=== PATIENT | male | born 1995 | race Two or more races ===

== ENCOUNTER 2020-03-13 14:09 | Inpatient (IN) | payer OTHER ==
--- NOTE | 2020-03-13 14:45 | BHS.RME ---
Substance Use & Tx History - Substance Use History Heroin Substance amount: 4 bags Frequency of use: Daily Substance route: Injection (ex: intravenous or skin popping) Date of Last Use: 03/10/20 (First use age 23 y. OD x 3, last OD years ago. Has Narcan at home) Marijuana/Hashish Substance amount: one joint Frequency of use: Less than 3 times per week Substance route: Smoking Date of Last Use: 03/12/20 (First use age 19 y) - Last Treatment Date of last treatment: First visit to [facility] Physical/Psych/Mental Status - Behavior General Behavior: Increased activity (restlessness, agitation) Eye Contact: Normal - Cooperativeness Cooperativeness: Cooperative - Thinking Thought Processes: Tight Thought content: Future oriented - Physical Health Problems Is patient presently having any pain?: No Does patient presently have any injuries (include location): No Does patient currently have a fever: No COWS - Scale Resting Pulse: 0= [place] 80 or Below Sweatin=Flushed/Facial Moisture Restless Observation: 3= Extraneous Movement Pupil Size: 2= Moderately Dilated Bone or Joint Aches: 2= Severe Diffuse Aches Runny Nose/ Eye Tearin= Runny Nose/Eyes GI Upset > 30mins: 3= Vomiting/Diarrhea Tremor Observation: 0= None Yawning Observation: 0= None Anxiety or Irritability: 2=Irritable/Anxious Goose Flesh Skin: 0=Smooth Skin COWS Score: 16
--- NOTE | 2020-03-13 14:57 | HP ---
COWS - Scale Resting Pulse: 0= [place] 80 or Below Sweatin=Flushed/Facial Moisture Restless Observation: 3= Extraneous Movement Pupil Size: 2= Moderately Dilated Bone or Joint Aches: 2= Severe Diffuse Aches Runny Nose/ Eye Tearin= Runny Nose/Eyes GI Upset > 30mins: 3= Vomiting/Diarrhea Tremor Observation: 0= None Yawning Observation: 0= None Anxiety or Irritability: 2=Irritable/Anxious Goose Flesh Skin: 0=Smooth Skin COWS Score: 16 CIWA Score - Admission Criteria OASAS Guidelines: Admission for Medically Managed Detox: Requires at least one of the followin. CIWA greater than 12 2. Seizures within the past 24 hours 3. Delirium tremens within the past 24 hours 4. Hallucinations within the past 24 hours 5. Acute intervention needed for co occurring medical disorder 6. Acute intervention needed for co occurring psychiatric disorder 7. Severe withdrawal that cannot be handled at a lower level of care (continued vomiting, continued diarrhea, abnormal vital signs) requiring intravenous medication and/or fluids 8. Admitting History and Physical - Admission Chief Complaint: Mr. Fiore is a 25 yo man who [place] [facility] [place]. History of Present Illness: Mr. Fiore is a 25 yo man who [place] [facility] [place] use. This [place] [facility] [place] to any detox. PMH/Legal: none PSH: right knee Psych: anxiety SOC: lives with parents Substance Use History Heroin Substance amount: 4 bags Frequency of use: Daily Substance route: Injection (ex: intravenous or skin popping) Date of Last Use: 03/10/20 (First use age 23 y. OD x 3, last OD years ago. Has Narcan at home) Marijuana/Hashish Substance amount: one joint Frequency of use: Less than 3 times per week Substance route: Smoking Date of Last Use: 03/12/20 (First use age 19 y) - Last Treatment Date of last treatment[place] [facility] [place] Source: Patient Limitations to Obtaining History: No Limitations Admission ROS S - HPI Exam Limitations: No Limitations - Ebola screening Have you traveled outside of the country in the last 21 days: No Have you been sick,other than usual withdrawal symptoms: No Do you have a fever: No - Review of Systems Constitutional: No Symptoms Reported, Unexplained wgt Loss (has glasses with him, for distance) EENT: reports: Blurred Vision Respiratory: reports: No Symptoms reported Cardiac: reports: No Symptoms Reported GI: reports: Diarrhea, Nausea, Vomiting : reports: No Symptoms Reported Musculoskeletal: reports: Back Pain, Joint Pain, Muscle Pain Integumentary: reports: No Symptoms Reported Neuro: reports: No Symptoms reported Endocrine: reports: No Symptoms Reported Hematology: reports: No Symptoms Reported Psychiatric: reports: Anxious Patient History - Smoking Cessation Smoking history: Never smoked Admission Physical Exam [facility] - Physical General Appearance: Yes: Nourished, Tremorous, Irritable, Sweating, Anxious HEENTM: Yes: EOMI, Hearing grossly Normal, Normocephalic, Normal Voice Respiratory: Yes: Lungs Clear, Normal Breath Sounds, No Respiratory Distress, No Accessory Muscle Use Neck: Yes: Within Normal Limits, Supple Breast: Yes: Breast Exam Deferred Cardiology: Yes: Regular Rhythm, Regular Rate, S1, S2 Abdominal: Yes: Normal Bowel Sounds, Non Tender, Flat, Soft Genitourinary: Yes: Other (deferred) Back: Yes: Normal Inspection Musculoskeletal: Yes: Gait Steady Extremities: Yes: Normal Inspection, Non-Tender Neurological: Yes: Alert, Normal Mood/Affect, Normal Response Integumentary: Yes: Normal Color, Dry, Warm - Diagnostic (1) Opioid withdrawal Current Visit: Yes Status: Acute (2) Cannabis abuse Current Visit: Yes Status: Acute Cleared for Admission [facility] - Detox or Rehab [facility] Level of Care: Medically Managed Detox Regimen/Protocol: Methadone Inpatient Rehab Admission - Rehab Decision to Admit Inpatient rehab admission?: No
[2020-03-13] MEDS ORDERED: METHADONE HCL 10 MG TABLET (FOR DETOX USE ONLY) PO ONE (15:14)
[2020-03-13] MEDS ORDERED: MAGNESIUM CITRATE 300 ML BOTTLE PO PRN (15:14)
[2020-03-13] MEDS ORDERED: MAG HYDROX/AL HYDROX/SIMETH 30 ML UNIT-DOSE CUP PO PRN (15:14)
[2020-03-13] MEDS ORDERED: ACETAMINOPHEN 325 MG TABLET (FP) PO PRN ×2 (15:14)
[2020-03-13] MEDS ORDERED: MENTHOL/PHENOL 1 EACH UD MM PRN (15:14)
[2020-03-13] MEDS ORDERED: MAGNESIUM HYDROX 2400MG/30ML ORAL SUSPENSION 30 ML CUP PO PRN (15:14)
[2020-03-13] MEDS ORDERED: cloNIDine HCL 0.1 MG TABLET PO PRN (15:14)
[2020-03-13] MEDS ORDERED: BISMUTH SUBSALICYLATE 262 MG/15 ML BTL PO PRN (15:14)
[2020-03-13 15:28] VITALS: BMI 24.1
[2020-03-13] MEDS: METHOCARBAMOL 500 MG TABLET PO PRN (15:54)
[2020-03-13] MEDS: ONDANSETRON *ODT* 4 MG TABLET SL PRN (16:27)
[2020-03-13] MEDS: hydrOXYzine PAMOATE 25 MG CAPSULE (FP) PO SCH ×2 (17:09→22:23)
[2020-03-13] MEDS: IBUPROFEN 400 MG TABLET (FP) PO PRN (17:09)
[2020-03-13] MEDS: MELATONIN 5 MG TABLETS PO SCH (22:23)
[2020-03-13] MEDS: THIAMINE HCL 100 MG TABLET (FP) PO SCH (22:23)
[2020-03-14] MEDS: hydrOXYzine PAMOATE 25 MG CAPSULE (FP) PO SCH (05:20)
[2020-03-14] MEDS: IBUPROFEN 400 MG TABLET (FP) PO PRN ×3 (05:23→19:30)
[2020-03-14] MEDS: METHOCARBAMOL 500 MG TABLET PO PRN ×2 (05:23→12:10)
--- NOTE | 2020-03-14 09:16 | EKG ---
Test Reason : Blood Pressure : / mmHG Vent. Rate : 061 BPM Atrial Rate : 061 BPM P-R Int : 144 ms QRS Dur : 102 ms QT Int : 430 ms P-R-T Axes : 074 095 042 degrees QTc Int : 432 ms NORMAL SINUS RHYTHM RIGHTWARD AXIS BORDERLINE ECG NO PREVIOUS ECGS AVAILABLE Confirmed by MD OPHELIA, BRITTNEY ([id number]) on 03/14/2020 9:16:45 AM Referred By: Confirmed By:BRITTNEY JACINTO MD
[2020-03-14] MEDS ORDERED: METHADONE HCL 10 MG TABLET (FOR DETOX USE ONLY) ONE (09:18)
[2020-03-14] MEDS ORDERED: METHADONE HCL 5 MG TABLET (FOR DETOX USE ONLY) ONE (09:18)
--- NOTE | 2020-03-14 09:49 | PN ---
BHS COWS - Scale Resting Pulse: 1= [place] 81-100 Sweatin=Flushed/Facial Moisture Restless Observation: 1= Difficult to Sit Still Pupil Size: 0= Normal to Room Light Bone or Joint Aches: 1= Mild Discomfort Runny Nose/ Eye Tearin= Nasal Congestion GI Upset > 30mins: 1= Stomach Cramp Tremor Observation of Outstretched Hands: 2= Slight Tremor Visible Yawning Observation: 2= >3x During Session Anxiety or Irritability: 2=Irritable/Anxious Goose Flesh Skin: 0=Smooth Skin COWS Score: 13 BHS Progress Note (SOAP) Subjective: anxiety sweats shakes restless body aches interrupted sleep Objective: 03/14/20 09:48 Vital Signs Temperature 98.0 F 03/14/20 08:30 Pulse Rate 93 H 03/14/20 08:30 Respiratory Rate 18 03/14/20 08:30 Blood Pressure 132/77 03/14/20 08:30 O2 Sat by Pulse Oximetry (%) 100 03/14/20 08:30 labs pending aaox3 ambulating no acute distress Assessment: 03/14/20 09:48 withdrawals Plan: continue detox increase fluids valium 10mg q4hr prn x 3 days
[2020-03-14] MEDS ORDERED: METHADONE (DETOX) 20 MG, METHADONE (DETOX) 5 MG PO ONE (10:00)
[2020-03-14] MEDS: PRENATAL VITAMINS W/ FOLIC ACID TABLET (FP) PO SCH (10:44)
[2020-03-14] MEDS: diazePAM 5 MG TABLET PO PRN ×3 (10:45→19:30)
[2020-03-14 11:17] LABS: HEMOGLOBIN 15.5 GM/dL (11.7-16.9); MCH 28.5 pg (25.7-33.7); MCHC 33.7 g/dl (32.0-35.9); MEAN CELL VOLUME 84.8 fl (80-96); MEAN PLT VOLUME 8.5 fl (7.5-11.1); PLATELET COUNT 341 K/MM3 (134-434); RBC 5.43 M/mm3 (4.00-5.60); RDW 12.9 % (11.9-15.9); WHITE BLOOD COUNT 13.2 K/mm3 (4.0-10.0)
[2020-03-14 11:26] LABS: ALBUMIN 4.5 g/dl (3.4-5.0); BILIRUBIN,TOTAL 1.2 mg/dL (0.2-1); BLOOD UREA NITROGEN 12.6 mg/dL (7-18); CALCIUM 9.3 mg/dL (8.5-10.1); CREATININE 1.2 mg/dL (0.55-1.3); POTASSIUM 3.9 mmol/L (3.5-5.1); TOT PROT 8.6 g/dl (6.4-8.2)
[2020-03-14] MEDS: hydrOXYzine PAMOATE 25 MG CAPSULE (FP) PO PRN (14:10)
[2020-03-14] MEDS: THIAMINE HCL 100 MG TABLET (FP) PO SCH (21:31)
[2020-03-14] MEDS: MELATONIN 5 MG TABLETS PO SCH (21:31)
[2020-03-15] MEDS: ONDANSETRON *ODT* 4 MG TABLET SL PRN (06:00)
[2020-03-15] MEDS: hydrOXYzine PAMOATE 25 MG CAPSULE (FP) PO PRN (06:00)
[2020-03-15] MEDS: diazePAM 5 MG TABLET PO PRN ×3 (06:20→17:32)
[2020-03-15] MEDS: TRIMETHOBENZAMIDE HCL 200MG/2ML INJ IM PRN ×2 (07:07→17:34)
[2020-03-15] MEDS: METHOCARBAMOL 500 MG TABLET PO PRN (08:02)
[2020-03-15] MEDS ORDERED: PROCHLORPERAZINE MALEATE 5 MG TABLET PO ONE (08:42)
[2020-03-15] MEDS ORDERED: TRIMETHOBENZAMIDE HCL 200MG/2ML INJ IM ONE (09:25)
[2020-03-15] MEDS ORDERED: METHADONE HCL 10 MG TABLET (FOR DETOX USE ONLY) PO ONE (10:00)
[2020-03-15] MEDS: PRENATAL VITAMINS W/ FOLIC ACID TABLET (FP) PO SCH (10:08)
--- NOTE | 2020-03-15 10:46 | PN ---
BHS COWS - Scale Resting Pulse: 0= [place] 80 or Below Sweatin= Chills/Flushing Restless Observation: 1= Difficult to Sit Still Pupil Size: 0= Normal to Room Light Bone or Joint Aches: 1= Mild Discomfort Runny Nose/ Eye Tearin= Nasal Congestion GI Upset > 30mins: 2= Nausea/Diarrhea Tremor Observation of Outstretched Hands: 2= Slight Tremor Visible Yawning Observation: 0= None Anxiety or Irritability: 2=Irritable/Anxious Goose Flesh Skin: 0=Smooth Skin COWS Score: 10 BHS Progress Note (SOAP) Subjective: dry heaves nausea restless body aches Objective: 03/15/20 10:45 Vital Signs Temperature 98.2 F 03/15/20 08:50 Pulse Rate 73 03/15/20 08:50 Respiratory Rate 19 03/15/20 08:50 Blood Pressure 149/81 03/15/20 08:50 O2 Sat by Pulse Oximetry (%) 99 03/15/20 08:50 Laboratory Tests 03/14/20 03/14/20 03/14/20 08:00 08:00 08:00 WBC 13.2 H RBC 5.43 Hgb 15.5 Hct 46.0 MCV 84.8 MCH 28.5 MCHC 33.7 RDW 12.9 Plt Count 341 MPV 8.5 Sodium 135 L Potassium 3.9 Chloride 100 Carbon Dioxide 25 Anion Gap 10 BUN 12.6 Creatinine 1.2 Est GFR (CKD-EPI)AfAm 96.15 Est GFR (CKD-EPI)NonAf 82.96 Random Glucose 119 H Calcium 9.3 Total Bilirubin 1.2 H AST 13 L ALT 33 Alkaline Phosphatase 81 Total Protein 8.6 H Albumin 4.5 Syphilis Serology Non-reactive HIV Ag/Ab Combo Qual 03/14/20 08:00 WBC RBC Hgb Hct MCV MCH MCHC RDW Plt Count MPV Sodium Potassium Chloride Carbon Dioxide Anion Gap BUN Creatinine Est GFR (CKD-EPI)AfAm Est GFR (CKD-EPI)NonAf Random Glucose Calcium Total Bilirubin AST ALT Alkaline Phosphatase Total Protein Albumin Syphilis Serology HIV Ag/Ab Combo Qual Negative aaox3 ambulating no acute distress Assessment: 03/15/20 10:45 withdrawals dry heave no vomiting noted; tigan IM x one ordered, compazine x one ordered Plan: continue detox
--- NOTE | 2020-03-15 17:07 | CONSULT ---
[facility] Psychiatric Consult - Data Date of interview: 03/15/20 Admission source: [facility] Identifying data: Patient is a 25 year old single male from [place], without children, unemployed, domiciled (resides with family) and is supported by unemployment benefits. This is patient's first admission to detox at [facility]. Patient admitted to for opioid dependence. Substance Abuse History: Substance Use History. Heroin. Substance amount: 4 bags. Frequency of use: Daily. Substance route: Injection (ex: intravenous or skin popping). Date of Last Use: 03/10/20 (First use age 23 y. OD x 3, last OD years ago. Has Narcan at home). Marijuana/Hashish. Substance amount: one joint. Frequency of use: Less than 3 times per week. Substance route: Smoking. Date of Last Use: 03/12/20 (First use age 19 y). - Last Treatment. Date of last treatment: First visit to [facility]. History Source: Patient. Limitations to Obtaining History: No Limitations Medical History: denies. endorses good health. Psychiatric History: Patient denies history of psychiatric hospitalization and suicide attempt. Mr. Fiore first psychiatric contact was four months ago at a private psychiatrist office due to worsening anxiety. Mr. Fiore continues to see the same psychiatrist today, Dr. Cindy Landon, in [place], [place]. Patient is diagnosed with anxiety disorder and is prescribed lexapro ( unsure), klonopin 0.5mg BID + Seroquel ( not sure if it's 25 or 50). At present patient is requesting to resume psychotropic medications. Patient reports stable mood but ongoing anxiety. Physical/Sexual Abuse/Trauma History: Not discussed. Mental Status Exam - Mental Status Exam Alert and Oriented to: Time, Place, Person Cognitive Function: Good Patient Appearance: Well Groomed Mood: Anxious, Hopeful Affect: Appropriate Patient Behavior: Appropriate, Cooperative Speech Pattern: Appropriate Voice Loudness: Normal Thought Process: Goal Oriented Thought Disorder: Not Present Hallucinations: Denies Suicidal Ideation: Denies Homicidal Ideation: Denies Insight/Judgement: Poor Sleep: Poorly Appetite: Fair Muscle strength/Tone: Normal Gait/Station: Normal Psychiatric Findings - Problem List ([place] 1, 2,3) (1) Anxiety disorder Status: Chronic (2) Cannabis abuse Status: Acute (3) Opioid withdrawal Status: Acute (4) Substance-induced sleep disorder Status: Acute - Initial Treatment Plan Initial Treatment Plan: Psychoeducation provided. Detoxification in progress. Will order Lexapro 10mg + Seroquel 50mg HS. Benefits and side effects discussed. Verbal consent given.
[2020-03-15] MEDS: hydrOXYzine PAMOATE 50 MG CAPSULE (FP) PO PRN (17:32)
[2020-03-15] MEDS: THIAMINE HCL 100 MG TABLET (FP) PO SCH (22:47)
[2020-03-15] MEDS: QUEtiapine FUMARATE 50 MG TABLET PO SCH (22:47)
[2020-03-15] MEDS: MELATONIN 5 MG TABLETS PO SCH (22:47)
[2020-03-16] MEDS: diazePAM 5 MG TABLET PO PRN ×4 (07:39→22:18)
--- NOTE | 2020-03-16 09:33 | PN ---
BHS COWS - Scale Resting Pulse: 0= [place] 80 or Below Sweatin= Chills/Flushing Restless Observation: 1= Difficult to Sit Still Pupil Size: 0= Normal to Room Light Bone or Joint Aches: 1= Mild Discomfort Runny Nose/ Eye Tearin= None GI Upset > 30mins: 0= None Tremor Observation of Outstretched Hands: 1= Tremor [place], Not Seen Yawning Observation: 0= None Anxiety or Irritability: 1=Feels Anxious/Irritable Goose Flesh Skin: 0=Smooth Skin COWS Score: 5 BHS Progress Note (SOAP) Subjective: body aches no more dry heaves, I feel so much better. anxiety Objective: 03/16/20 09:32 Vital Signs Temperature 97.1 F L 03/16/20 05:23 Pulse Rate 60 03/16/20 05:23 Respiratory Rate 16 03/16/20 05:23 Blood Pressure 114/71 03/16/20 05:23 O2 Sat by Pulse Oximetry (%) 99 03/16/20 05:23 Laboratory Tests 03/13/20 03/14/20 03/14/20 15:30 08:00 08:00 WBC 13.2 H RBC 5.43 Hgb 15.5 Hct 46.0 MCV 84.8 MCH 28.5 MCHC 33.7 RDW 12.9 Plt Count 341 MPV 8.5 Sodium 135 L Potassium 3.9 Chloride 100 Carbon Dioxide 25 Anion Gap 10 BUN 12.6 Creatinine 1.2 Est GFR (CKD-EPI)AfAm 96.15 Est GFR (CKD-EPI)NonAf 82.96 Random Glucose 119 H Calcium 9.3 Total Bilirubin 1.2 H AST 13 L ALT 33 Alkaline Phosphatase 81 Total Protein 8.6 H Albumin 4.5 Syphilis Serology COVID-19 (HUGO) Not detected HIV Ag/Ab Combo Qual 03/14/20 03/14/20 08:00 08:00 WBC RBC Hgb Hct MCV MCH MCHC RDW Plt Count MPV Sodium Potassium Chloride Carbon Dioxide Anion Gap BUN Creatinine Est GFR (CKD-EPI)AfAm Est GFR (CKD-EPI)NonAf Random Glucose Calcium Total Bilirubin AST ALT Alkaline Phosphatase Total Protein Albumin Syphilis Serology Non-reactive COVID-19 (HUGO) HIV Ag/Ab Combo Qual Negative labs noted aaox3 ambulating no acute distress Assessment: 03/16/20 09:33 withdrawals Plan: continue detox
[2020-03-16] MEDS ORDERED: METHADONE HCL 10 MG TABLET (FOR DETOX USE ONLY) ONE (09:43)
[2020-03-16] MEDS ORDERED: METHADONE HCL 5 MG TABLET (FOR DETOX USE ONLY) ONE (09:43)
[2020-03-16] MEDS ORDERED: METHADONE (DETOX) 10 MG, METHADONE (DETOX) 5 MG PO ONE (10:00)
[2020-03-16] MEDS: ESCITALOPRAM OXALATE 10 MG TABLET PO SCH (10:50)
[2020-03-16] MEDS: PRENATAL VITAMINS W/ FOLIC ACID TABLET (FP) PO SCH (10:51)
[2020-03-16] MEDS: METHOCARBAMOL 500 MG TABLET PO PRN (17:43)
[2020-03-16] MEDS: THIAMINE HCL 100 MG TABLET (FP) PO SCH (21:09)
[2020-03-16] MEDS: MELATONIN 5 MG TABLETS PO SCH (21:09)
[2020-03-16] MEDS: QUEtiapine FUMARATE 50 MG TABLET PO SCH (21:09)
[2020-03-17] MEDS: diazePAM 5 MG TABLET PO PRN (06:13)
[2020-03-17] MEDS ORDERED: METHADONE HCL 10 MG TABLET (FOR DETOX USE ONLY) PO ONE (10:00)
[2020-03-17] MEDS: hydrOXYzine PAMOATE 50 MG CAPSULE (FP) PO PRN ×2 (10:50→15:46)
[2020-03-17] MEDS: ESCITALOPRAM OXALATE 10 MG TABLET PO SCH (10:50)
[2020-03-17] MEDS: PRENATAL VITAMINS W/ FOLIC ACID TABLET (FP) PO SCH (10:50)
--- NOTE | 2020-03-17 18:15 | PN ---
BHS COWS - Scale Resting Pulse: 0= [place] 80 or Below Sweatin= No chills or Flushing Restless Observation: 1= Difficult to Sit Still Pupil Size: 0= Normal to Room Light Bone or Joint Aches: 0= None Runny Nose/ Eye Tearin= None GI Upset > 30mins: 0= None Tremor Observation of Outstretched Hands: 0= None Yawning Observation: 0= None Anxiety or Irritability: 0= None Goose Flesh Skin: 0=Smooth Skin COWS Score: 1 BHS Progress Note (SOAP) Subjective: Patient denies current Withdrawal / Detox symptoms and reports that he feels well overall at this time. Objective: Patient A & O X 3, Observed Ambulating on Detox Unit Unassisted. In No Acute Distress. 03/17/20 18:11 Vital Signs Temperature 97.8 F 03/17/20 12:40 Pulse Rate 76 03/17/20 12:40 Respiratory Rate 16 03/17/20 12:40 Blood Pressure 124/70 03/17/20 12:40 O2 Sat by Pulse Oximetry (%) 98 03/17/20 12:40 Laboratory Tests 03/13/20 03/14/20 03/14/20 15:30 08:00 08:00 WBC 13.2 H RBC 5.43 Hgb 15.5 Hct 46.0 MCV 84.8 MCH 28.5 MCHC 33.7 RDW 12.9 Plt Count 341 MPV 8.5 Sodium 135 L Potassium 3.9 Chloride 100 Carbon Dioxide 25 Anion Gap 10 BUN 12.6 Creatinine 1.2 Est GFR (CKD-EPI)AfAm 96.15 Est GFR (CKD-EPI)NonAf 82.96 Random Glucose 119 H Calcium 9.3 Total Bilirubin 1.2 H AST 13 L ALT 33 Alkaline Phosphatase 81 Total Protein 8.6 H Albumin 4.5 Syphilis Serology COVID-19 (HUGO) Not detected HIV Ag/Ab Combo Qual 03/14/20 03/14/20 08:00 08:00 WBC RBC Hgb Hct MCV MCH MCHC RDW Plt Count MPV Sodium Potassium Chloride Carbon Dioxide Anion Gap BUN Creatinine Est GFR (CKD-EPI)AfAm Est GFR (CKD-EPI)NonAf Random Glucose Calcium Total Bilirubin AST ALT Alkaline Phosphatase Total Protein Albumin Syphilis Serology Non-reactive COVID-19 (HUGO) HIV Ag/Ab Combo Qual Negative Lab Result noted. Detox Admission WBC level noted: 13.2 Patient denies cough, SOB, and chest pain. Patient denies any unusual urinary complaints (burning, pain, frequency, urgency, hesitancy, visualization of blood in urine). Patient afebrile. Detox admission COVID-19 Test result noted to be Negative. Patient reports frequent vomiting earlier on in Detox. However, he reports that that symptom has since subsided. 03/17/20 18:12 Assessment: 03/17/20 18:12 WITHDRAWAL SYMPTOMS. Plan: Continue Detox. Increase Daily Oral Water Intake. Patient scheduled for D/C from detox unit tomorrow.
[2020-03-17] MEDS: QUEtiapine FUMARATE 50 MG TABLET PO SCH (23:18)
[2020-03-17] MEDS: MELATONIN 5 MG TABLETS PO SCH (23:18)
[2020-03-17] MEDS: THIAMINE HCL 100 MG TABLET (FP) PO SCH (23:18)
[2020-03-18] MEDS: hydrOXYzine PAMOATE 50 MG CAPSULE (FP) PO PRN ×2 (01:00→07:24)
[2020-03-18] MEDS ORDERED: METHADONE HCL 5 MG TABLET (FOR DETOX USE ONLY) PO ONE (06:00)
[2020-03-18 06:11] VITALS: BP 112/62; PULSE 68; TEMP 97.5
[2020-03-18] MEDS: ESCITALOPRAM OXALATE 10 MG TABLET PO SCH (09:03)
[2020-03-18] MEDS: PRENATAL VITAMINS W/ FOLIC ACID TABLET (FP) PO SCH (09:03)
--- NOTE | 2020-03-18 16:25 | DS ---
[facility] Detox Discharge Summary Admission Date: 03/13/20 - History Present History: Cannabis Dependence, Opioid Dependence Additional Comments: Patient completed detox successfully and discharged in stable condition. Patient instructed to follow up with PCP within 1 week and for abnormal lab results. - Physical Exam Results Vital Signs: Vital Signs Temperature 97.5 F L 03/18/20 05:24 Pulse Rate 68 03/18/20 05:24 Respiratory Rate 16 03/18/20 05:24 Blood Pressure 112/62 03/18/20 05:24 O2 Sat by Pulse Oximetry (%) 97 03/18/20 05:24 Pertinent Admission Physical Exam Findings: Withdrawal sxs Laboratory Tests 03/13/20 03/14/20 03/14/20 15:30 08:00 08:00 WBC 13.2 H RBC 5.43 Hgb 15.5 Hct 46.0 MCV 84.8 MCH 28.5 MCHC 33.7 RDW 12.9 Plt Count 341 MPV 8.5 Sodium 135 L Potassium 3.9 Chloride 100 Carbon Dioxide 25 Anion Gap 10 BUN 12.6 Creatinine 1.2 Est GFR (CKD-EPI)AfAm 96.15 Est GFR (CKD-EPI)NonAf 82.96 Random Glucose 119 H Calcium 9.3 Total Bilirubin 1.2 H AST 13 L ALT 33 Alkaline Phosphatase 81 Total Protein 8.6 H Albumin 4.5 Syphilis Serology COVID-19 ([facility]) Not detected HIV Ag/Ab Combo Qual 03/14/20 03/14/20 08:00 08:00 WBC RBC Hgb Hct MCV MCH MCHC RDW Plt Count MPV Sodium Potassium Chloride Carbon Dioxide Anion Gap BUN Creatinine Est GFR (CKD-EPI)AfAm Est GFR (CKD-EPI)NonAf Random Glucose Calcium Total Bilirubin AST ALT Alkaline Phosphatase Total Protein Albumin Syphilis Serology Non-reactive COVID-19 ([facility]GO) HIV Ag/Ab Combo Qual Negative Labs reviewed: wbc 13.2 (no repeat in chart, pt asymptomatic), serum gluc 119, total bilirubin 1.2 (high): patient instructed to follow up with PCP for all abnormal lab results - Treatment Hospital Course: Detox Protocol Followed, Detoxed Safely, Responded well, Discharged Condition Good - Medication Discharge Medications: Ambulatory Orders NK [No Known Home Medication] 03/13/20 - Diagnosis (1) Hyperglycemia Status: Acute (2) Total bilirubin, elevated Status: Acute (3) Cannabis abuse Status: Acute (4) Leukocytosis Status: Acute (5) Opioid withdrawal Status: Acute (6) Anxiety disorder Status: Chronic - AMA Did Patient Leave Against Medical Advice: No (Instructed to follow up with PCP within 1 week)
== END 2020-03-18 09:38 | disposition home or self-care (01) | DRG 773 ==
LOC: YASAS 14:09 → Y6N 15:24
PROVIDERS: ADMIT Allergy & Immunology; ATTEND Allergy & Immunology
PROC: HZ2ZZZZ Detoxification Services for Substance Abuse Treatment (ICD-10-PCS; principal; 2020-03-13)
DX: F11.23 Opioid dependence with withdrawal (principal); F12.10 Cannabis abuse, uncomplicated; F41.9 Anxiety disorder, unspecified; F19.282 Other psychoactive substance dependence with psychoactive substance-induced sleep disorder; R73.9 Hyperglycemia, unspecified; E80.6 Other disorders of bilirubin metabolism; D72.829 Elevated white blood cell count, unspecified; R19.8 Other specified symptoms and signs involving the digestive system and abdomen
CPT/HCPCS: 36415; 80053; 85027; 86780; 87389; 93005; 93010; J0735; Q0162; U0003